=== PATIENT | male | born 1975 | race Caucasian/White ===

== ENCOUNTER → 2024-06-23 16:40 | Outpatient (REF) | payer OTHER, SELFPAY | LOC: RAD 16:40 | PROVIDERS: ATTENDING PHYSICIAN Physician Assistant; FAMILY PHYSICIAN Family Medicine | DX: R10.31 Right lower quadrant pain (principal); R10.829 Rebound abdominal tenderness, unspecified site; R19.7 Diarrhea, unspecified | CPT/HCPCS: 74177; Q9967 ==